=== PATIENT | male | born 1945 | race Caucasian/White ===

== ENCOUNTER 2020-02-14 05:54 | Emergency (ER) | payer OTHER ==
[~2020-02-14] VITALS: Ht 165.1 cm; Wt 58.6 kg
[2020-02-14 05:56] VITALS: BP 111/66
--- NOTE | 2020-02-14 06:06 | NUR ---
Went into the room to assess patient and patient began insisting there is nothing wrong with him and he wants to leave. Educated patient on the need for a work up to make sure he is ok but he still insists he wants to go and will follow up with his primary care later. MD notified and went in to talk to patient
[2020-02-14] MEDS ORDERED: predniSONE 20 mg tablet PO ONE (06:10)
[2020-02-14] MEDS ORDERED: ipratropium/albuterol 3ml nebule NEB ONE (06:10)
== END 2020-02-14 06:25 | disposition left against medical advice (07) ==
LOC: ER 05:56
DX: R42 Dizziness and giddiness (principal); R19.7 Diarrhea, unspecified; I25.10 Atherosclerotic heart disease of native coronary artery without angina pectoris; J44.9 Chronic obstructive pulmonary disease, unspecified; F17.200 Nicotine dependence, unspecified, uncomplicated
CPT/HCPCS: 93005; 99283